=== PATIENT | male | born 1985 | race Caucasian/White ===

== ENCOUNTER 2019-06-30 03:01 | Emergency (ER) | payer SELFPAY ==
[~2019-06-30] VITALS: Ht 175.3 cm; Wt 97.0 kg
[2019-06-30 03:11] VITALS: BP 142/94
--- NOTE | 2019-06-30 03:23 | NUR ---
ASSUMING CARE OF PT. FROM [facility] AT THIS TIME. PT. PACING AROUND ROOM AND REMOVED ALL MONITORS. TECH AT FOR EKG; PT. VERBALIZED THAT HE WAS AGREEABLE WITH EKG.
== END 2019-06-30 03:58 | disposition home or self-care (01) ==
LOC: ED 03:40
DX: F41.1 Generalized anxiety disorder (principal); F15.10 Other stimulant abuse, uncomplicated; F17.200 Nicotine dependence, unspecified, uncomplicated
CPT/HCPCS: 93005; 99283